=== PATIENT | female | born 1940 | race Caucasian/White ===

== ENCOUNTER 2020-10-11 08:30 | Inpatient (IN) | payer OTHER, MEDICARE, BC, SELFPAY ==
[2020-10-11 10:48] LABS: Source Nasal/Nares
[2020-10-11 13:30] LABS: COVID-19 PCR Negative (Negative)
[2020-10-11] MEDS: Nystatin POWDER 60 GM JAR TP ×2 (14:58→20:30)
[2020-10-11] MEDS: metroNIDAZOLE 500 MG TAB UD ×2 (14:58→20:25)
--- NOTE | 2020-10-11 21:02 | HPE_ITS ---
Date of service: 10/11/20 Time of Service: 10:02 Assessment and Plan Assessment and plan (1) Hospice care patient: Status: Acute Assessment and plan: Margarita is being admitted for symptom management. She will need daily visits while on this status. She is to be seen by Dr De La Torre tomorrow. Dr De La Torre and I have discussed her case. She is aware of Margarita's desire to use Act 39 if/when Margarita returns home. We also discussed Margarita choosing to voluntarily stop eating and drinking. I did not bring this up with Margarita; Dr De La Torre will do so 10/12 at her visit with Margarita. Margarita has met with product examiner Tri Gillespie. She would like to meet with hospital precinct commanding officer Taya Good, too. I discussed Margarita's needs with Taya. (2) Left leg swelling: Status: Acute Assessment and plan: Very suspicious for DVT or for LAD of left groin. I think the former is more likely but certainly LAD could be playing a role, too. She is worried that the pain in her calf is now starting on her right side. We cannot treat her for presumed DVT due to her open cancerous wound. I am afraid we would cause inadvertent bleeding of her cancer. (3) History of pelvic surgery: Status: Chronic (4) Uncontrolled pain: Status: Acute Assessment and plan: Margarita had been prescribed oxycodone by the oncology team at [facility]. She has not used them regularly, as they make her feel dizzy and she had been living alone until this past week. She is in pain with any movement. She agreed to a SC morphine pump. I started it at 1 mg/hr with 1 mg bolus q 15 minutes, as she doesn't take much narcotic medication at this time. We will work to get her comfortable as soon as possible. She is very stoic, and she has been very afraid of developing dizziness as a potential side effect of narcotics as she wants to avoid falling. (5) Wound discharge: Status: Chronic Assessment and plan: Was quite odiferous at home. Ordered metronidazole for odor control. Not as strong a smell as she had at home, but she noted that she was able to shower this am, prior to transfer to [facility]. (6) Urinary and bowel incontinence: Status: Acute Assessment and plan: Her PROTECTION ENGINEER anatomy is hard to discern. SHe says she frequently passes gas through her cancerous wound. Sometimes the discharge from the wound looks like feces. Unclear if she has a fistula, highly suspect so. (7) Generalized weakness: Status: Acute Assessment and plan: Hard for her move at all, due to combination of pain and weakness. I was surprised to learn from her primary nurse that she could walk 10 with a walker and stand-by assistance only. Will continue to monitor. Given her leg swelling and constant pain, I suspect she will be bedbound soon. (8) Unintentional weight loss: Status: Acute Assessment and plan: Due to her cancer. Currently on regular diet. Dr De La Torre may choose to discuss the option of voluntary stopping of eating and drinking with Margarita when she sees her tomorrow. History of Present Illness History of Present Illness Chief Complaint: hospice symptom management, vulvar cancer Narrative: Margarita is a 80 yo woman originally diagnosed with vulvar cancer in 2011. She had extensive surgery at [facility] then and 2 years later had a revisional surgery at [facility]. She thought after that surgery, she'd been cured of her cancer. She was without symptoms until about Jun 2019, at the start of the COVID-19 pandemic. She is non-specific about her symptoms, but it sounds as if she has a new lesion in her vulvar area. Her growth and discharge worsened until she couldn't bear it. She did not seek care for this recurrence until Jul 14, when she went to [facility]. From there, she was transferred to [facility]. She tells me that the [facility] provider cotton agent told her to go home, put her things in order, and enroll in hospice. She did not contact hospice in June, but instead continued to live on her own (her from dementia about 5 years ago) in [facility] until last week. Due to her progressive weakness, she was forced to give her dog to a friend. She could no longer care for her dog. She was so bereft, she called her sister, Jayleen, who lives in [place] and is the caregiver for their other sister Sa hays, with end-stage COPD. Jayleen came up to comfort Margarita over the loss of her canine boat hoist operator, but found her in much worse shape than she had admitted to. Margarita then contacted hospice and asked to be admitted immediately. If she could not be admitted that day, she was going to take all my pain pills instead. We were able to get her enrolled in hospice on the evening Monday, October 06. I saw her the following day, because she was interested in hearing about Act 39, Medical Aid in Dying. She wanted to begin the process. She made her first formal request. She then said she didn't think she could tolerate making it through the minimal 21 days or so of the Act 39 process. Her pain was uncontrolled. She could not do her own personal care. She wanted to . She denied any depression. She is not demented. She said the [facility] team told her she would in the next 2-3 months. She did not expect to be still alive at this time. I told her we could admit her to the hospital, get her pain under control, and she could meet with Dr De La Torre as the consulting physician. She said if she could in the hospital, she would be happy. She does not want to go home again. Review of Systems Constitutional Constitutional: Reports difficulty sleeping, Reports fatigue, Reports lethargy, Reports poor appetite, Reports weakness and Reports weight loss Eyes Eyes: Reports dry eyes and Reports requires corrective lenses ENT Ears, Nose, Mouth, and Throat: Reports dizziness, Reports dry mouth and Reports disequilibrium Cardiovascular Cardiovascular: Reports pedal edema, Reports claudication, Reports leg edema, Reports dyspnea and Reports dyspnea on exertion Respiratory Respiratory: Reports dyspnea and Reports dyspnea on exertion Gastrointestinal Gastrointestinal: Reports abdominal pain, Reports constipation, Reports excessive flatus and Reports fecal incontinence Genitourinary Genitourinary: Reports urinary frequency, Reports difficulty voiding, Reports genital lesions, Reports dysuria, Reports pelvic pain, Reports prolapse symptoms, Reports urinary incontinence and Reports vaginal odor Musculoskeletal Musculoskeletal: Reports abnormal gait, Reports atrophy and Reports muscle weakness Integumentary/Breasts Skin/Breast: Reports bleeding lesions, Reports changing lesions, Reports dry skin, Reports lesions, Reports non-healing lesions, Reports skin pain and Reports wounds Neurologic Neurologic: Reports abnormal gait, Reports behavioral changes, Reports dizziness, Reports disequilibrium and Reports weakness Psychiatric Psychiatric: Reports abnormal sleep pattern, Reports behavioral changes, Reports difficulty concentrating, Reports hopelessness, Reports anhedonia and Reports mood swings Endocrine Endocrine: Reports fatigue [facility] Medical History (Updated 10/11/20 @ 21:19 by Mckayla Mario MD) Colovesical fistula DNI (do not intubate) DNR (do not resuscitate) Generalized weakness Goals of care, counseling/discussion Hospice care patient Left leg DVT Left leg swelling Uncontrolled pain Unintentional weight loss Urinary and bowel incontinence Vesical fistula, not elsewhere classified Wound discharge from her vulvar cancer Surgical History (Updated 10/09/20 @ 16:32 by Mckayla Mario MD) H/O of hysterectomy with bilateral oophorectomy History of pelvic surgery x 2; extensive vulvar reconstruction after initial cancer removal Family History (Updated 10/09/20 @ 16:33 by Mckayla Mario MD) Sister COPD (chronic obstructive pulmonary disease) Sister End stage COPD Social History (Updated 10/11/20 @ 21:22 by Mckayla Mario MD) Smoking/Tobacco Use Status: Never Smoking risk assessment performed?: Yes Alcohol Intake: current Alcohol Intake frequency: holidays/special occasions only Alcohol type: other Drug use: Never Caregiver/Support person: No Household members: none and other Details: sister from [place] staying there temporarily Housing: house number of grandchildren: 0 Communication Needs: Corrective Lenses Education Level: college Do you need help understanding health information?: Always current occupation: retired Pets and animals: Yes (gave her dog to good friend September 2020; could not care for her due to her ill) Pets and animals: dog(s) Sexually active: No Current gender identity: female What is your relationship status?: How often do you talk on the phone with friends or family?: three or more times per week How often do you get together with friends or relatives?: three or more times per week Panel score (0-1 are the most socially isolated patients): 1 What type of physical activity do you participate in: none and bed-bound Frequency: does not exercise Special roxane needs: No Agree to transfusion: No Seatbelt use: always Working smoke detector in home: Yes Fire extinguisher in home: Yes Do you feel safe at home: No (unsafe ambulation) Do you feel safe in your relationship?: Yes Additional Social history: Margarita is a . She has no children. Her of dementia about 5-6 years ago. Her dog was her family. She had to give her dog away mid-September due to her inability to care for the dog. Her sister came up from [place] to comfort her and found her sicker than she'd let on. She asked to be enrolled in hospice STAT. This was done. She needs more attention to get her comfortable. She wants to use Act 39 MINDY. She now understands it is not immediate. She made her first formal request on 10/07. She will see Dr De La Torre in consultation. I will see her as soon as my schedule allows after 15 days of passed from her first request. Meds Allergies and Home Medications Allergies Allergy/AdvReac Type Severity Reaction Status Date / Time No Known Allergies Allergy Verified 09/28/20 09:34 Home Medications Medication Instructions Recorded Confirmed Type acetaminophen 325 mg tablet 325 mg PO Q4H PRN PRN tab 09/28/20 10/11/20 History cyanocobalamin (vitamin B-12) 250 500 PO DAILY 09/28/20 10/10/20 History mcg tablet docusate sodium 100 mg capsule 100 mg PO DAILY 09/28/20 10/11/20 History oxycodone 5 mg tablet 5 mg PO Q4H PRN PRN 09/28/20 10/11/20 History levothyroxine 112 mcg PO DAILY AM 10/11/20 10/11/20 History Exam Const General: cooperative, no acute distress and ill appearing Nutritional Appearance: overweight Orientation: alert, awake and oriented x3 [facility] Head: normocephalic and atraumatic Ears: hearing grossly normal bilaterally General nose exam: external nose normal Face and sinus: normal facial exam, face symmetric and dry mucous membranes Eyes Conjunctivae: conjunctivae normal Sclera: sclerae normal Neck Neck: no lymphadenopathy Resp Effort & Inspection: normal respiratory effort and able to speak in complete sentences Auscultation: clear to auscultation bilaterally Cardio Jugular venous pressure: no JVD Rate: regular rate Rhythm: regular rhythm Heart Sounds: S1 normal and S2 normal GI Palpation: soft Auscultation: normal bowel sounds External Female Exam: abnormal external appearance, gaping introitus, externally tender, external swelling, lesion and other (normal 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 landmarks are destroyed by cancer) Skin General skin exam: pallor Lesions: lesion noted Wounds: wounds noted Hair: normal Neuro General: patient alert, patient awake, patient oriented x3, not confused and unable to assess gait (nurse reported that she could walk with walker to toilet, about 10 ft) Cognition: normal cognition Speech: speech normal Gait: shuffling and gait assisted Method: walker Extrem General: calf tenderness (left worse than right, +Homans sign) bilaterally, edema (left leg, from groin to ankle) and pedal edema Psych Appearance: grossly normal Mental Status: mental status grossly normal Speech and Movement: speech clear and slowed movement Mood: dysthymic mood Affect: sad Attitude: cooperative Thought Process: perseverating (wants to , hates being alive in current state) Insight: fair Judgment: fair Other: This was my second visit with Margarita. Trying to get a good sense of who she is. Want to explore her reasons for wanting to , once we get her pain under better control. Results Labs Labs: Laboratory Results - last 24 hr 10/11/20 10:35 COVID-19 Source Nasal/nares SARS-CoV-2 (PCR) Negative COVID-19 Screening Have you, or household traveled for leisure in last 14 days?: No Had IN PERSON contact w/suspected or confirmed C-19 person: No
--- NOTE | 2020-10-12 08:33 | W.PM.PROGNOT ---
Date of Service Date of service: 10/12/20 Time of Service: 08:33 Assessment and Plan Assessment and plan (1) Unintentional weight loss: Status: Acute (2) Uncontrolled pain: Status: Acute (3) Vulva cancer: Status: Acute (4) Urinary and bowel incontinence: Status: Acute Assessment and plan: Due to Margarita's anatomy I think putting in a urinary catheter through the urethra is almost impossible. I could not see evidence of a urethra being present at this time. I would like to have a urology consult just to determine if there are options. Obviously be easiest options are the best. What would a suprapubic catheter in entail.? We are not looking to act any options immediately but would like to know what the options are Regarding pain: well controlled at this time on morphine pump Left leg swelling probably DVT. No action She is considering VCED later this week after her family returns. She feels that it is important to say goodbye to her sisters when she is lucid. We also discussed act 39. She has clearly requested medication to help her . She is of clear mind and has the capacity to make this decision. I will complete the consult form for Act 39. We discussed other options for remaining in control of her dying process I have discussed Margarita's thoughts and choices with Dr Mario Subjective Subjective Patient reports: feels better, pain is less and tolerating liquids well Interval history since last seen: Margarita feels like she is doing better today. The pain medication has helped considerably. She is awaiting her visit from her sisters which will be Monday or Monday. With her overnight nurse, Lelo, and her daytime nurse we discussed her options. We discussed act 39 and the logistics of it. We discussed voluntary cessation of eating and drinking. And we also discussed treating her pain with titrating the doses as needed. We also discussed a catheter. She is willing to meet with urology. Exam Const General: cooperative, comfortable and well developed Nutritional Appearance: thin Orientation: oriented x3 Eyes General: appearance normal, both eyes and all related structures Resp Effort & Inspection: normal respiratory effort and able to speak in complete sentences Auscultation: clear to auscultation bilaterally and no crackles External Female Exam: other (large open wound from cancer approx 2 in by 3 in ) Extrem Other: Left leg very swollen, about twice the size of right. Presumed DVT. Psych Speech and Movement: speech clear and slowed movement Mood: congruent mood Attitude: cooperative Thought Process: normal Objective Laboratory Results - last 24 hr 10/11/20 10:35 COVID-19 Source Nasal/nares SARS-CoV-2 (PCR) Negative
--- NOTE | 2020-10-12 09:01 | CMPROGNOTE_ITS ---
Care Management Progress Note Margarita was admitted by Hospice for symptom management. Dr. De La Torre ordered a Urology consult to explore options for urinary incontinence. Appears from chart review that Margarita would prefer to pass away at the Hospital, CM will await further advisement from Hospice for disposition coordination. Per MD: We also discussed Margarita choosing to voluntarily stop eating and drinking. She agreed to a SC morphine pump. I started it at 1 mg/hr with 1 mg bolus q 15 minutes, as she doesn't take much narcotic medication at this time. Margarita's desire to use Act 39 if/when Margarita returns home. We will work to get her comfortable as soon as possible. She is very stoic, and she has been very afraid of developing dizziness as a potential side effect of narcotics as she wants to avoid falling. Margarita has met with hospice community liaison Tri Gillespie. She would like to meet with [facility] pure culture operator Taya Good, too. CM continues to follow. From H&P: Margarita is a 80 yo woman originally diagnosed with vulvar cancer in 2011. She had extensive surgery at [facility] then and 2 years later had a revisional surgery at [facility]. She thought after that surgery, she'd been cured of her cancer. She was without symptoms until about Jun 2019, at the start of the COVID-19 pandemic. She is non-specific about her symptoms, but it sounds as if she has a new lesion in her vulvar area. Her growth and discharge worsened until she couldn't bear it. She did not seek care for this recurrence until Jul 14, when she went to [facility]. From there, she was transferred to [facility]. She tells me that the CARDIAC SONOGRAPHER-ONC provider division superintendent told her to go home, put her things in order, and enroll in hospice. She did not contact hospice in June, but instead continued to live on her own (her from dementia about 5 years ago) in [facility] until last week. Due to her progressive weakness, she was forced to give her dog to a iend. She could no longer care for her dog. She was so bereft, she called her sister, Jayleen, who lives in [place] and is the caregiver for their other sister Yael, with end-stage COPD. Jayleen came up to comfort Margarita over the loss of her canine oil scout, but found her in much worse shape than she had admitted to. Margarita then contacted hospice and asked to be admitted immediately. If she could not be admitted that day, she was going to take all my pain pills instead. We were able to get her enrolled in hospice on the evening Monday, October 06. I saw her the following day, because she was interested in hearing about Act 39, Medical Aid in Dying. She wanted to begin the process. She made her first formal request. She then said she didn't think she could tolerate making it through the minimal 21 days or so of the Act 39 process. Her pain was uncontrolled. She could not do her own personal care. She wanted to . She denied any depression. She is not demented. She said the CARDIAC SONOGRAPHER-ONC team told her she would in the next 2-3 months. She did not expect to be still alive at this time. I told her we could admit her to the hospital, get her pain under control, and she could meet with Dr De La Torre as the consulting physician. She said if she could in the hospital, she would be happy. She does not want to go home again.
[2020-10-12] MEDS: metroNIDAZOLE 500 MG TAB UD ×3 (09:23→20:29)
[2020-10-12] MEDS: Nystatin POWDER 60 GM JAR TP ×3 (09:23→20:28)
--- NOTE | 2020-10-12 11:58 | PHA.REVIEW ---
Pharmacy Admission Review - Admission Clinical Review (Last Updated 10/11/20 @ 21:19 by Mckayla Mario MD) Unintentional weight loss (Acute) Generalized weakness (Acute) Left leg swelling (Acute) Uncontrolled pain (Acute) Hospice care patient (Acute) Urinary and bowel incontinence (Acute) Vulva cancer (Acute) No Known Allergies Allergy (Verified 09/28/20 09:34) - Renal Dosing Medications needing adjustments: N/A - Anticoagulation DVT Prohphylaxis: N/A Therapeutic Anticoagulation: N/A - Opiate Usage Evaluate Pain Scale/Pains Meds: Reviewed Scheduled Bowel Reg ordered if on Opiates?: Yes (GEORGE and PRN meds) - Relevant Labs Electrolytes, C-Reactive P, ESR: N/A - DM Control Insulin Dosing: N/A - Heart Failure/ME EF%, JESÚS's, B-Blockers, Diuretics: N/A - BP Control If elevated: N/A - Qtc Review If Elevated: N/A - IV to PO Switch IV Medications: Reviewed - Home Meds Home Med List reviewed: Reviewed (Some meds on external med history not on pt's home med list, but most of those were written by Dr. Mario who admitted the patient and are similar to the ones on the palliative orderset that were ordered.) Relevent Home Meds Not ordered & why?: Cyanocobalamin, levothyroxine, oxycodone (has morphine CADD) - Current meds Current Medication Order Review: Reviewed - Comments Comments/Follow Ups: Watch for dose adjustments with the CADD and for med changes (additional need of BM meds).
--- NOTE | 2020-10-12 13:51 | CHAPLAIN ---
I had a long visit with Margarita this morning. She was resting in bed, but open to conversation. She shared some personal history telling me about growing up in [place] and making her way to [place], after living in other states, as her 's work as an senior internal auditor led them to different places and then to [place]. Margarita is very close to her two sisters who are in [place]. They are close in age and are the three musketeers Margarita said. One sister had been visiting with Margarita but returned to [place] to care for the other sister who has COPD. The two of them will be coming to [place] on 10/14. Margarita had to rehome her harris-doodle, Kristel, recently and her sister came to support her at that time. Margarita is a and does not have any children, according to Dr. Mario's notes. Margarita is a hospice patient, dealing with cancer of the vulva and said she would prefer to be here rather than home. She thought that might sound strange, but said she doesn't want a lot of people in and out of her house. I assured her that this wasn't strange as many people are hesitant to have lots of hospice staff in their homes. Margarita was raised in a [employer], but does not attend episcopal now and considers her time in nature as a time spent close to God. She also said she has a friendly relationship with Luca, and has since she was a young girls. We did not talk about Margarita's diagnosis and prognosis, but I will continue to visit and it's likely we'll get to those topics. She said she is comfortable. She met with Dr. De La Torre this morning and will likely see Dr. Mario tomorrow.
[2020-10-12 20:36] VITALS: BP 138/64; PULSE 81; RESP 18; TEMP 37; O2SAT 94
[2020-10-13] MEDS: diphenhydrAMINE 25 MG CAP PO (00:54)
[2020-10-13 07:09] VITALS: BP 130/70; PULSE 86; RESP 16; TEMP 37.5; O2SAT 95
--- NOTE | 2020-10-13 07:10 | W.UROLOGYCON ---
Date of service: 10/13/20 Time of Service: 08:52 Assessment and Plan Assessment and plan (1) Urinary and bowel incontinence: Status: Acute Assessment and plan: With her large bulky pelvic mass, she is at risk of developing urinary retention. In fact, she had a near retention episode this morning. Placing a urethral catheter is not expected given her current anatomy. I think a suprapubic tube is quite reasonable. At our facility, it would require a cutdown to locate the bladder and inserted her SP tube. This would need to be done in the operating room with some local anesthetic and some sedation. The other option would be for a down and back transfer to a facility that has interventional radiology services so that it tube could be put in percutaneously. The patient is absolutely not interested in any type of transfer. She is, however, agreeable to a cut down procedure here in our operating room. We will make the patient n.p.o. and contact the operating room and our anesthesia providers to get this patient on the schedule for this afternoon. History of Present Illness History of Present Illness Chief Complaint: Urinary incontinence Narrative: This is a 80-year-old woman who has a history of vulvar cancer. She was initially treated with a localized resection. When she had a recurrence she was treated with radiation therapy and radical vulvectomy. The initial surgery was done in [facility]. The subsequent radiation and radical surgery was done at [facility] in [place], [place]. She is currently hospitalized with a pelvic mass and open wounds. I have been asked to see her to discuss possible bladder drainage options. She tells me that after her surgery back in 2013, she had a urethral catheter for about 2 weeks. She was continent after the urinary catheter was removed. She did not require intermittent catheterization. She is not aware of any specific urinary diversion procedure, but she mentions that she did have reconstruction. Currently, she has a bulky mass in the vagina. Earlier this morning, she felt the need to void, but was unable to urinate. She was bladder scanned for 700 cc. Afterwards, she was incontinent of urine. The urine has been irritating to her pelvic/vaginal mass. I was able to review some of her records from [facility]. The operative note from the radical vulvectomy done at [facility] is not available, so I am not sure of the technical details involved with the reconstruction portion of her surgery. [place] [facility] [place] that the urethra was moved further back into the vagina during the procedure. [place] pelvic exam [place] [facility] indicates that the urethral meatus is not visible and that the vaginal area is replaced with bulky tumor that extends to the rectum. Review of Systems Cardiovascular Cardiovascular: Denies chest pain, Denies irregular heart rhythm and Denies dyspnea Respiratory Respiratory: Denies cough, Denies hemoptysis, Denies excessive phlegm production and Denies dyspnea Gastrointestinal Gastrointestinal: Denies nausea and Denies vomiting Neurologic Neurologic: Denies confusion Psychiatric Psychiatric: Denies confusion Hematologic/Lymphatic Comments: Left lower extremity edema likely related to a DVT ON LICENSE OF [facility] Medical History (Updated 10/11/20 @ 21:19 by Mckayla Mario MD) Colovesical fistula DNI (do not intubate) DNR (do not resuscitate) Generalized weakness Goals of care, counseling/discussion Hospice care patient Left leg DVT Left leg swelling Uncontrolled pain Unintentional weight loss Urinary and bowel incontinence Vesical fistula, not elsewhere classified Wound discharge from her vulvar cancer Surgical History (Updated 10/09/20 @ 16:32 by Mckayla Mario MD) H/O of hysterectomy with bilateral oophorectomy History of pelvic surgery x 2; extensive vulvar reconstruction after initial cancer removal Family History (Updated 10/09/20 @ 16:33 by Mckayla Mario MD) Sister COPD (chronic obstructive pulmonary disease) Sister End stage COPD Social History (Updated 10/11/20 @ 21:22 by Mckayla Mario MD) Smoking/Tobacco Use Status: Never Smoking risk assessment performed?: Yes Alcohol Intake: current Alcohol Intake frequency: holidays/special occasions only Alcohol type: other Drug use: Never Caregiver/Support person: No Household members: none and other Details: sister from [place] staying there temporarily Housing: house number of grandchildren: 0 Communication Needs: Corrective Lenses Education Level: college Do you need help understanding health information?: Always current occupation: retired Pets and animals: Yes (gave her dog to good friend September 2020; could not care for her due to her ill) Pets and animals: dog(s) Sexually active: No Current gender identity: female What is your relationship status?: How often do you talk on the phone with friends or family?: three or more times per week How often do you get together with friends or relatives?: three or more times per week Panel score (0-1 are the most socially isolated patients): 1 What type of physical activity do you participate in: none and bed-bound Frequency: does not exercise Special roxane needs: No Agree to transfusion: No Seatbelt use: always Working smoke detector in home: Yes Fire extinguisher in home: Yes Do you feel safe at home: No (unsafe ambulation) Do you feel safe in your relationship?: Yes Additional Social history: Margarita is a . She has no children. Her of dementia about 5-6 years ago. Her dog was her family. She had to give her dog away mid-September due to her inability to care for the dog. Her sister came up from [place] to comfort her and found her sicker than she'd let on. She asked to be enrolled in hospice STAT. This was done. She needs more attention to get her comfortable. She wants to use [address] [place]. She now understands it is not immediate. She made her first formal request on 10/07. She will see Dr De La Torre in consultation. I will see her as soon as my schedule allows after 15 days of passed from her first request. Exam Narrative Exam Narrative: She is a very poor does not woman in no current distress. She is cooperative. Her vital signs are documented elsewhere She has an umbilical hernia that is reducible. She has a healed Pfannenstiel incision. She has no additional lower abdominal scarring. She is awake and alert. She is quite clear and direct in her wishes. Results Last Vital Signs Temp 37.0 C 10/12/20 20:36 Pulse 81 10/12/20 20:36 Resp 18 10/12/20 20:36 BP 138/64 10/12/20 20:36 Pulse Ox 94 10/12/20 20:36
[2020-10-13] MEDS: Docusate Sodium 100 MG CAP PO (08:51)
[2020-10-13] MEDS: Nystatin POWDER 60 GM JAR TP ×3 (08:51→21:08)
[2020-10-13] MEDS: metroNIDAZOLE 500 MG TAB UD ×3 (08:52→20:45)
[2020-10-13 08:54] VITALS: BP 130/70; PULSE 86; RESP 16; TEMP 37.5; O2SAT 95
--- NOTE | 2020-10-13 09:01 | W.NUTRFU ---
Date of service: 10/13/20 Time of Service: 09:01 Nutritional Follow up NOTE: 80 year old female with hx of unintentional weight loss with hx of vulvar cancer treatment. Hospice care patient. Following regular meal plan with adequate intake to meet nutrient and fluid needs. BMI indicates obesity. Will continue to follow. Time Spent in Nutritional Counseling and Treatment: 0
--- NOTE | 2020-10-13 12:31 | CMPROGNOTE_ITS ---
Care Management Progress Note Margarita met with Dr. Nieves for a Urology Consult this morning, per their conversation Margarita was agreeable to going to the OR and having a suprapubic tube placed for bladder. Margarita will be brought to the OR this afternoon. She was visiting with Glove Operator Tri Gillespie, and Dr. Mario when CM observed her.
--- NOTE | 2020-10-13 14:54 | W.PM.PROGNOT ---
Date of Service Date of service: 10/13/20 Time of Service: 11:54 Assessment and Plan Assessment and plan (1) Generalized weakness: Status: Chronic Assessment and plan: Margarita reports she has been bedbound for more than 24 hrs. She says she feels too weak to get out of bed. Nurses are caring for her personal care needs. (2) Left leg DVT: Status: Suspected Assessment and plan: Not treating with anticoagulants due to her risk of bleeding from her open wound. (3) History of pelvic surgery: Status: Chronic (4) Uncontrolled pain: Status: Chronic Assessment and plan: She appeared much more comfortable today but still reported her pain at a 3. I discussed increasing her basal dose to 2 mg/hr, but she wants to wait until her sisters visit. Her primary nurse says that sometimes after Margarita received a bolus, she gets very sleepy. Margarita does not want to be sleepy when her sisters are with her. (5) Hospice care patient: Status: Chronic Assessment and plan: Remains on SYMPTOM MANAGEMENT. (6) Wound discharge: Status: Chronic Assessment and plan: Odor is better controlled with addition of metronidazole to her care. (7) Urinary and bowel incontinence: Status: Acute Assessment and plan: Dr Nieves noted fistuale, and expects they will get worse as her cancer progresses. (8) Constipation: Status: Acute Assessment and plan: May be exacerbated by her opioids. We need to be aggressive in her bowel regimen. More laxatives ordered. Subjective Subjective Patient reports: still having pain (gets boluses before she is moved), pain is less, flatus and other (bedbound now, too weak to stand) Interval history since last seen: Margarita reports her pain is down to a 3 at rest, from a 7 or 8. She remains on low dose morphine pump at 1 mg/hr. She does not want to go up on her pain medication until she sees her sisters, who are due to [place] from [place] tomorrow. She met with Tri Gillespie, the hospice case manager, at length today. I saw her twice, once with Tri and once on her own. She is thinking that she wants to start doing Voluntary Cessation of Eating and Drinking as of . I explained that this would be a 1-2 week process. We discussed her going to a community long-term to put this in place. She would like to stay at [facility]. She loves the nursing care she is receiving. Margarita was evaluated this am by Dr Nieves who was going to put in a suprapubic catheter later today. However, her primary nurse, Indy, says that the majority of discharge from her kevon-area appears to be cancerous fluids from her oepn wound. She does not think that Margarita's quality of life would be much affected by having a urinary catheter in place. She says she and the other nurses would have to change her just as frequently. Dr Nieves reassured me, and I reassured Margarita, that the chance of her intestines prolapsing through her wound is quite low. He does describe her open wound as functioning much like a cloaca. He acknowledges that she would still have quite a bit of fluid coming from her open wound even with a SP catheter in place. Given this, we cancelled the procedure that was scheduled for later today. Exam Const General: cooperative, no acute distress and ill appearing Nutritional Appearance: overweight Orientation: alert, awake and oriented x3 [facility] Head: normocephalic and atraumatic Ears: hearing grossly normal bilaterally General nose exam: external nose normal Face and sinus: normal facial exam, face symmetric and dry mucous membranes Eyes Conjunctivae: conjunctivae normal Sclera: sclerae normal Neck Neck: no lymphadenopathy Resp Effort & Inspection: normal respiratory effort and able to speak in complete sentences Auscultation: clear to auscultation bilaterally Cardio Jugular venous pressure: no JVD Rate: regular rate Rhythm: regular rhythm Heart Sounds: S1 normal and S2 normal GI Palpation: soft Auscultation: normal bowel sounds External Female Exam: abnormal external appearance, gaping introitus, externally tender, external swelling, lesion and other (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) Skin General skin exam: pallor Lesions: lesion noted Wounds: wounds noted Hair: normal Neuro General: patient alert, patient awake, patient oriented x3 and not confused Cognition: normal cognition Speech: speech normal Gait: gait assisted Method: walker Extrem General: calf tenderness (left worse than right, +Homans sign) bilaterally, edema (left leg, from groin to ankle) and pedal edema Psych Appearance: grossly normal Mental Status: mental status grossly normal Speech and Movement: speech clear and slowed movement Affect: sad Attitude: cooperative Thought Process: perseverating (wants to , hates being alive in current state) Insight: fair Judgment: fair Other: This was my third visit with Margarita. Trying to get a good sense of who she is. She is leaning toward voluntary stopping of eating and drinking. Appears to be of sound mind. Calls herself stubborn. Objective Last Vital Signs Temp 99.5 F 10/13/20 08:54 Pulse 86 10/13/20 08:54 Resp 16 10/13/20 08:54 BP 130/70 10/13/20 08:54 Pulse Ox 95 10/13/20 08:54
--- NOTE | 2020-10-13 15:03 | CHAPLAIN ---
I have not seen Margarita today. According to Care Management notes Margarita will be going to the OR this afternoon to have laguna catheter put in. Rev. Tri Gillespie, [facility] Staff Nurse, visited with Margarita this morning.
[2020-10-13] MEDS: Bisacodyl 5 MG TABEC PO (18:01)
[2020-10-14 07:19] VITALS: BP 104/65; PULSE 79; RESP 15; TEMP 37; O2SAT 91
[2020-10-14] MEDS: metroNIDAZOLE 500 MG TAB UD ×3 (08:52→20:45)
[2020-10-14] MEDS: Docusate Sodium 100 MG CAP PO (08:53)
[2020-10-14] MEDS: Nystatin POWDER 60 GM JAR TP ×3 (08:53→20:45)
--- NOTE | 2020-10-14 10:57 | CHAPLAIN ---
Margarita was resting in bed when I visited. We talked about her conversation with Dr. Mario about voluntarily stopping eating and drinking, and how Margarita feels about that plan. 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 Her mom was the seventh daughter of the seventh daughter and Margarita talked about special gifts that her mom had. Margarita's two sisters are arriving from [place] today and will stay for a few days. One sister is the caregiver for the other, who has COPD. Margarita has one other friend who lives locally with whom she'd like to visit, but that person isn't fully vaccinated yet. Margarita hopes she will be able to see her eventually.
--- NOTE | 2020-10-14 12:09 | W.PM.PROGNOT ---
Date of Service Date of service: 10/14/20 Time of Service: 11:09 Assessment and Plan Assessment and plan (1) Constipation: Status: Acute Assessment and plan: Bowel sounds wnl. No mass, no tenderness. May be leaking more stool from her wound than she realized. Nurses think that little of the discharge is stool; most of it is cancerous material/sloughing. (2) Generalized weakness: Status: Chronic Assessment and plan: Bedbound now. Weak and with likely left DVT. Using bedpan without complaint. (3) Uncontrolled pain: Status: Chronic Assessment and plan: On morphine SC pump. She is not fully pain controlled but she wants to remain as clear as possible to talk to her sisters today and tomorrow. (4) Hospice care patient: Status: Chronic Assessment and plan: Remains on symptom mangament. Added multiple bowel meds today. (5) Wound discharge: Status: Chronic Assessment and plan: Still requiring pericare every 2-3 hrs. Using flagyl for wound control. (6) Urinary and bowel incontinence: Status: Acute Assessment and plan: No control over either. Has fistulas. Her wound is acting like at [facility]. Thanks to Dr Nieves for being willing to put in SP if patient thought this would improve her QOL. (7) Vulva cancer: Status: Acute Assessment and plan: This will be the cause of her . Progressive. Subjective Subjective Patient reports: still having pain and no bowel movement Interval history since last seen: I met with Margarita in her room. Her sisters are supposed to visit her this afternoon. She thinks they will be in town for about 48 hrs. She is planning to start limiting her food/drink tomorrow. She is still having 3/10 pain. She does not want me to increase her pain medication yet. She wants to be as clear as possible to see her sisters. She has not had a bowel movement since Monday, October 10. Some of her discharge from her wound looks as if it could be fecal. She does have bowel sounds. She is willing to try any bowel meds we have, including relistor. She would prefer to avoid an enema if possible. She feels her father will come get her when she dies. She is not afraid of dying. She feels very happy to be at [facility]. She says she didn't realize how hard it was for her to care for herself at home. She remains on hospice symptom management. We discussed the decision not to proceed with the SP catheter placement. She said she understands that she would still have to be changed/moved just as often, due to her vulvar wound discharge. She is ok with not having a catheter placed. Exam Const General: cooperative, no acute distress and ill appearing Nutritional Appearance: overweight Orientation: alert, awake and oriented x3 [facility] Head: normocephalic and atraumatic Ears: hearing grossly normal bilaterally General nose exam: external nose normal Face and sinus: normal facial exam, face symmetric and dry mucous membranes Eyes Conjunctivae: conjunctivae normal Sclera: sclerae normal Neck Neck: no lymphadenopathy Resp Effort & Inspection: normal respiratory effort and able to speak in complete sentences Auscultation: clear to auscultation bilaterally Cardio Jugular venous pressure: no JVD Rate: regular rate Rhythm: regular rhythm Heart Sounds: S1 normal and S2 normal GI Inspection: obesity Palpation: soft, not firm, no guarding, no masses and nontender Auscultation: normal bowel sounds External Female Exam: abnormal external appearance, gaping introitus, externally tender, external swelling, lesion and other (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) Skin General skin exam: pallor Lesions: lesion noted Wounds: wounds noted Hair: normal Neuro General: patient alert, patient awake, patient oriented x3 and not confused Cognition: normal cognition Speech: speech normal Extrem General: calf tenderness (left worse than right, +Homans sign) bilaterally, edema (left leg, from groin to ankle) and pedal edema Psych Appearance: grossly normal Mental Status: mental status grossly normal Speech and Movement: speech clear and slowed movement Mood: congruent mood Affect: normal affect and sad Attitude: cooperative Thought Process: normal Insight: fair Judgment: fair Other: This was my fourth visit with Margarita. Trying to get a good sense of who she is. She is leaning toward voluntary stopping of eating and drinking. Appears to be of sound mind. Calls herself stubborn. If she does get discharged, wants to use Act 39. Explained she could not use it in the hospital or SNF. Objective Last Vital Signs Temp 98.6 F 10/14/20 07:19 Pulse 79 10/14/20 07:19 Resp 15 10/14/20 07:19 BP 104/65 10/14/20 07:19 Pulse Ox 91 L 10/14/20 07:19
--- NOTE | 2020-10-14 13:10 | PDOC.CMPRO ---
Care Management Progress Note Margarita's sisters will be coming to visit her, she has asked to not have her pain meds increased until after their visit. Per Dr. Mario, she has discussed intentions to stop eating and drinking tomorrow. Catheter placement was cancelled. Reportedly Margarita is now bedbound and too weak to get out of bed, she remains on Symptom management through Hospice and on a morphine drip. No updates on disposition at this time. CM continues to follow.
[2020-10-14] MEDS: Senna TAB 1 TAB PO ×2 (13:37→20:45)
[2020-10-14] MEDS: Methylnaltrexone 12 MG/0.6 ML VIAL SC (13:37)
[2020-10-15] MEDS: Docusate Sodium 100 MG CAP PO (08:51)
[2020-10-15] MEDS: metroNIDAZOLE 500 MG TAB UD ×3 (08:52→20:40)
[2020-10-15] MEDS: Senna TAB 1 TAB PO (09:00)
[2020-10-15] MEDS: Nystatin POWDER 60 GM JAR TP ×3 (09:02→20:40)
--- NOTE | 2020-10-15 13:20 | W.PM.PROGNOT ---
Date of Service Date of service: 10/15/20 Time of Service: 13:20 Assessment and Plan Assessment and plan (1) Constipation: Status: Acute Assessment and plan: No obvious formed bowel movement despite multiple bowel meds. Asymptomatic with her constipation. No nausea. No pain. Will continue to give meds but not to worry, no enema, unless symptomatic. (2) Generalized weakness: Status: Chronic Assessment and plan: bedbound too weak to stand appreciates being in hospital as she could not function at home (3) Left leg DVT: Status: Suspected Assessment and plan: still swollen calf still painful if palpated explained she is at risk for PE due to her clot she's hoping for a quick exit (4) Uncontrolled pain: Status: Chronic Assessment and plan: Increased her basal rate to 2 mg. CHanging pump so she can self-administer. She will likely need daily adjustments to her pump medications. (5) Hospice care patient: Status: Chronic Assessment and plan: Remains on symptom management. (6) Vulva cancer: Status: Acute Assessment and plan: This will be the cause of her . Advanced recurrent cancer. t Subjective Subjective Patient reports: still having pain, no bowel movement and shortness of breath Interval history since last seen: Margarita's sisters, Yael and Jayleen, came to visit her yesterday. They drove up from [place] to participate in Margarita's Last supper. [facility] made her a wonderful spaghetti dinner. Margarita had multiple bowel medications yesterday, including relistor/methylnaltrexone. However, she has not had a BM. She said that she is not having any nausea or abdominal pain. She is leaking a small amount of feces with her output. Her pain is increasing. She would like to be in charge of her medication boluses. She would like an increase in her basal dose to 2 mg/hr. I spoke to the hospital pharmacist Aleida and she was able to reprogram the pump so Margarita could give herself a bolus every 15 minutes. The pump has a lockout for 20 mg q 4 hrs. This can be changed. She is planning on starting VSED tomorrow, or maybe later today after her sisters leave. I came to see her twice (so far) today in hopes of meeting up with her sisters and answering any questions they might have. Margarita tells me that after they leave today, they will not be returning before her . Exam Const General: cooperative, no acute distress and ill appearing Nutritional Appearance: overweight Orientation: alert, awake and oriented x3 [facility] Head: normocephalic and atraumatic Ears: hearing grossly normal bilaterally General nose exam: external nose normal Face and sinus: normal facial exam, face symmetric and dry mucous membranes Eyes Conjunctivae: conjunctivae normal Sclera: sclerae normal Neck Neck: no lymphadenopathy Resp Effort & Inspection: normal respiratory effort and able to speak in complete sentences Auscultation: clear to auscultation bilaterally Cardio Jugular venous pressure: no JVD Rate: regular rate Rhythm: regular rhythm Heart Sounds: S1 normal and S2 normal GI Inspection: obesity Palpation: soft, not firm, no guarding, no masses and nontender Auscultation: normal bowel sounds External Female Exam: abnormal external appearance, gaping introitus, externally tender, external swelling, lesion and other (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 cancer) Skin General skin exam: pallor Lesions: lesion noted Wounds: wounds noted Hair: normal Neuro General: patient alert, patient awake, patient oriented x3 and not confused Cognition: normal cognition Speech: speech normal Extrem General: calf tenderness (left worse than right, +Homans sign) bilaterally, edema (left leg, from groin to ankle) and pedal edema Psych Appearance: grossly normal Mental Status: mental status grossly normal Speech and Movement: speech clear and slowed movement Mood: congruent mood Affect: normal affect and sad Attitude: cooperative Thought Process: normal Insight: fair Judgment: fair Other: Appears to be of sound mind. Calls herself stubborn. She is convinced that she will be able to use VSED. Objective Last Vital Signs Temp 98.6 F 10/14/20 07:19 Pulse 79 10/14/20 07:19 Resp 15 10/14/20 07:19 BP 104/65 10/14/20 07:19 Pulse Ox 91 L 10/14/20 07:19
--- NOTE | 2020-10-15 14:40 | W.PM.PROGNOT ---
Date of Service Date of service: 10/15/20 Time of Service: 14:40 Assessment and Plan Assessment and plan (1) Voluntary starvation: Start date: 10/15/20 Start time: 14:44 Status: Acute Assessment and plan: Changed status to NPO. Stopped all po medications. Margarita and her sisters are aware that she can change her mind and ask for food/drink if she desires. Life expectancy is between 1-2 weeks. Subjective Subjective Patient reports: no new complaints Interval history since last seen: wants to stop eating and drinking as of today changed her dietary status to NPO talked to her sisters and answered their questions hospice pump will be brought to [facility] in order for Margarita to be able to give herself boluses Exam Const General: cooperative, no acute distress and ill appearing Nutritional Appearance: overweight Orientation: alert, awake and oriented x3 HENMT Head: normocephalic and atraumatic Ears: hearing grossly normal bilaterally General nose exam: external nose normal Face and sinus: normal facial exam, face symmetric and dry mucous membranes Eyes Conjunctivae: conjunctivae normal Sclera: sclerae normal Neck Neck: no lymphadenopathy Resp Effort & Inspection: normal respiratory effort and able to speak in complete sentences Auscultation: clear to auscultation bilaterally Cardio Jugular venous pressure: no JVD Rate: regular rate Rhythm: regular rhythm Heart Sounds: S1 normal and S2 normal GI Inspection: obesity Palpation: soft, not firm, no guarding, no masses and nontender Auscultation: normal bowel sounds External Female Exam: abnormal external appearance, gaping introitus, externally tender, external swelling, lesion and other (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) Skin General skin exam: pallor Lesions: lesion noted Wounds: wounds noted Hair: normal Neuro General: patient alert, patient awake, patient oriented x3 and not confused Cognition: normal cognition Speech: speech normal Extrem General: calf tenderness (left worse than right, +Homans sign) bilaterally, edema (left leg, from groin to ankle) and pedal edema Psych Appearance: grossly normal Mental Status: mental status grossly normal Speech and Movement: speech clear and slowed movement Mood: congruent mood Affect: normal affect and sad Attitude: cooperative Thought Process: normal Insight: fair Judgment: fair Other: Appears to be of sound mind. Calls herself stubborn. She is convinced that she will be able to use VSED. Objective Last Vital Signs Temp 98.6 F 10/14/20 07:19 Pulse 79 10/14/20 07:19 Resp 15 10/14/20 07:19 BP 104/65 10/14/20 07:19 Pulse Ox 91 L 10/14/20 07:19
[2020-10-16] MEDS: Nystatin POWDER 60 GM JAR TP ×3 (09:16→20:31)
[2020-10-16] MEDS: metroNIDAZOLE 500 MG TAB UD ×3 (09:16→20:31)
--- NOTE | 2020-10-16 10:13 | PGE_ITS ---
Date of Service Date of service: 10/16/20 Time of Service: 08:30 Assessment and Plan Assessment and plan (1) Voluntary starvation: Status: Acute Assessment and plan: Hospice and Pall Care specialists prefer to call this voluntary stopping (or cessation) of eating and drinking, or VSED/VCED. Margarita is clear that this is what she wants. She initially wanted to do Act 39, but she thought the 3-4 week timeline was too long. I told her that given her overall strong heart and lungs and obesity status, she could live up to 2 weeks without eating or drinking. We will ensure that she remains comfortable during this process. (2) Generalized weakness: Status: Chronic Assessment and plan: Bed bound. Cannot stand. Expects to get weaker rapidly given her prognosis. (3) Left leg DVT: Status: Suspected Assessment and plan: Untreated with anticoagulants given risk of causing bleeding from her cancerous wound. (4) Uncontrolled pain: Status: Chronic Assessment and plan: Is on a morphine pump with bolus available for patient use. (5) Goals of care, counseling/discussion: Status: Acute Assessment and plan: She reiterated her plan for VSED without regrets. (6) Hospice care patient: Status: Chronic Assessment and plan: Remains on symptom management. May have to increase her basilar rate later today. She is in charge of her boluses. 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 LNAs and RNs are doing a wonderful job keeping her clean and dry. She is very grateful. (9) Colovesical fistula: Status: Acute Subjective Subjective Patient reports: still having pain, no bowel movement and shortness of breath; denies tolerating liquids well and tolerating a regular diet Interval history since last seen: I met with Margarita this am. Her sisters came to say good bye the final time soon after. She is confident in her decision to employ voluntary stopping of eating and drinking (VSED). She would not be able to do this at home as she has no caregiver. Her sisters both live in [place] and one of them is chronically ill. She has no children. She does not want to go to a SNF or community penitentiary, as she would have to pay out of pocket and she does not have excess burt on hand. She is very happy with the care she is receiving from the LNAs and nurses at [facility]. She has not had a BM. She has no GI symptoms. She had asked yesterday for me to stop all oral meds as she did not want to drink the water required to swallow them. She asked for me to change her dietary status to NPO. Exam Const General: cooperative, no acute distress and ill appearing Nutritional Appearance: overweight Orientation: alert, awake and oriented x3 [facility] Head: normocephalic and atraumatic Ears: hearing grossly normal bilaterally General nose exam: external nose normal Face and sinus: normal facial exam, face symmetric and dry mucous membranes Eyes Conjunctivae: conjunctivae normal Sclera: sclerae normal Neck Neck: no lymphadenopathy Resp Effort & Inspection: normal respiratory effort and able to speak in complete sentences Auscultation: clear to auscultation bilaterally Cardio Jugular venous pressure: no JVD Rate: regular rate Rhythm: regular rhythm Heart Sounds: S1 normal and S2 normal GI Inspection: obesity Palpation: soft, not firm, no guarding, no masses and nontender Auscultation: normal bowel sounds External Female Exam: abnormal external appearance, gaping introitus, externally tender, external swelling, lesion and other (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) Skin General skin exam: pallor Lesions: lesion noted Wounds: wounds noted Hair: normal Neuro General: patient alert, patient awake, patient oriented x3 and not confused Cognition: normal cognition Speech: speech normal Extrem General: calf tenderness (left worse than right, +Homans sign) bilaterally, edema (left leg, from groin to ankle) and pedal edema Psych Appearance: grossly normal Mental Status: mental status grossly normal Speech and Movement: speech clear and slowed movement Mood: congruent mood Affect: normal affect and sad Attitude: cooperative Thought Process: normal Insight: fair Judgment: fair Other: Appears to be of sound mind. Calls herself stubborn. She is convinced that she will be able to use VSED. Objective Last Vital Signs Temp 98.6 F 10/14/20 07:19 Pulse 79 10/14/20 07:19 Resp 15 10/14/20 07:19 BP 104/65 10/14/20 07:19 Pulse Ox 91 L 10/14/20 07:19
--- NOTE | 2020-10-16 10:32 | CMPROGNOTE_ITS ---
Care Management Progress Note Per Dr. Shelbi Avila has decided to voluntarily starve herself. Her life expectancy is between 1-2 weeks. Her status was changed to NPO at her wishes and all PO medications discontinued. She will remain at [facility] for end of life care.
--- NOTE | 2020-10-16 15:32 | CHAPLAIN ---
I visited with Margarita shortly after her sisters level. They had been in town for a few days to visit Margarita. Margarita has decided to voluntarily stop drinking and eating to lead to her . She has asked to utilize Act 39, for medically ending her life, but felt the three-week wait period was too long. Mckayla said that Margarita will likely within one to two weeks without eating or drinking. Margarita is very certain of her decision and has been thinking about it for a long time. Here sisters are supportive. Because of the pain and the spread of her cancer, Margarita she doesn't see another way. She is having some pain relief now.
[2020-10-17] MEDS: metroNIDAZOLE 500 MG TAB UD ×3 (08:50→20:55)
[2020-10-17] MEDS: Nystatin POWDER 60 GM JAR TP ×3 (08:51→20:55)
--- NOTE | 2020-10-17 09:52 | CMPROGNOTE_ITS ---
- If Service Date Differs Date of service: 10/17/20 Time of Service: 09:52 Care Management Progress Note S/O: No change in plan. Margarita is a hospice patient who has voluntarily stopped eating and drinking. Her life expectancy is between 1 - 2 weeks. Her status was changed to NPO on 10/15/20 per patient's wishes and all PO medications have been discontinued. A: Margarita is a 80 year old female admitted to [facility] for uncontrolled pain. P: Margarita remains at [facility] for end of life care.
--- NOTE | 2020-10-17 17:58 | W.PM.PROGNOT ---
Date of Service Date of service: 10/17/20 Time of Service: 02:30 Assessment and Plan Assessment and plan (1) Voluntary starvation: Status: Acute Assessment and plan: AKA VSED/VCED per Hospice & Pall Care specialists (voluntary stopping (or cessation) of eating and drinking). Margarita shares with me that she is tolerating VSED, but sipping water today. She seems to enjoy company, and a dry mouth would decrease her current QOL. I expect she may stop liquids once she is weak and unable to enjoy visits or conversation at all. She was told that given her overall strong heart and lungs and obesity status, she could live up to 2 weeks without eating or drinking. Her hospital and hospice team is committed to make sure she remains comfortable during this process. (2) Generalized weakness: Status: Chronic Assessment and plan: Weakness continues .. She is bed bound, cannot stand, and expects to get weaker rapidly given her prognosis. (3) Left leg DVT: Status: Suspected Assessment and plan: Untreated with anticoagulants given risk of causing bleeding from her cancerous wound. (4) Uncontrolled pain: Status: Chronic Assessment and plan: Is on a morphine pump with bolus available for patient use. She appreciates being able to manage her own boluses ... she may need a small increase today. I spoke with nursing who will confirm current rate and adjust @ 1mg/hr/day rate. (5) Goals of care, counseling/discussion: Status: Acute Assessment and plan: She reiterated her plan for VSED without regrets. (6) Hospice care patient: Status: Chronic Assessment and plan: Remains on symptom management. (7) Vulva cancer: Status: Acute Assessment and plan: Advanced per reports .. I did not examine her today. (8) Vesical fistula, not elsewhere classified: Status: Acute Assessment and plan: She is leaking both urine and feces, mixed in with her cancerous wound discharge. LNAs and RNs are doing a wonderful job keeping her clean and dry. She is very grateful. (9) Colovesical fistula: Status: Acute Subjective Subjective Patient reports: no new complaints, still having pain (mild, bolus helps) and tolerating liquids well (tiny sips of water); denies nausea, vomiting and shortness of breath Interval history since last seen: Margarita is pleasant and actually cheerful in her welcome .. She is tolerating NPO, no headache, no major nausea, but we discussed this and I will add PRN anti-emetic. She shifts her weight and appreciates repositioning by staff. Exam Const General: cooperative, comfortable (but admits to needing to shift, and appreciates repositioning. Mild pain an), not anxious, not disheveled, frail appearing and ill appearing Nutritional Appearance: overweight Orientation: alert, awake and oriented x3 HENMT Head: normocephalic and atraumatic Ears: hearing grossly normal bilaterally and no external ear abnormalities General nose exam: normal external nose Face and sinus: normal facial exam, face symmetric and dry mucous membranes Eyes Conjunctivae: conjunctivae normal Sclera: sclerae normal Neck Neck: no lymphadenopathy Resp Effort & Inspection: normal respiratory effort and able to speak in complete sentences Cardio Jugular venous pressure: no JVD GI Inspection: obesity Palpation: soft, not firm, no masses and nontender Skin General skin exam: pallor Neuro General: patient alert, patient awake, patient oriented x3 and not confused Cognition: normal cognition Speech: speech normal Extrem General: edema (left leg, from groin to ankle) and pedal edema Psych Appearance: grossly normal Mental Status: mental status grossly normal Speech and Movement: speech clear and slowed movement Mood: congruent mood Affect: normal affect and sad Attitude: cooperative Thought Process: normal Insight: fair Judgment: fair Other: Margarita appears to be of sound mind, and quietly determined to remain NPO. She is warm and friendly, and seems to enjoy visiting. She seems very appreciative of staff and hospice support, especially being able to manage her own pain control (subcut morphine). Objective Last Vital Signs Temp 98.6 F 10/14/20 07:19 Pulse 79 10/14/20 07:19 Resp 15 10/14/20 07:19 BP 104/65 10/14/20 07:19 Pulse Ox 91 L 10/14/20 07:19
[2020-10-18] MEDS: metroNIDAZOLE 500 MG TAB UD ×2 (09:15→14:27)
[2020-10-18] MEDS: Nystatin POWDER 60 GM JAR TP ×2 (09:15→14:27)
--- NOTE | 2020-10-18 10:58 | CMPROGNOTE_ITS ---
- If Service Date Differs Date of service: 10/18/20 Time of Service: 10:58 Care Management Progress Note S/O: No change in plan. Margarita is a hospice patient who has voluntarily stopped eating and drinking. Her life expectancy is between 1 - 2 weeks. Her status was changed to NPO on 10/15/20 per patient's wishes and all PO medications have been discontinued. Per provider note, Margarita is expected to become rapidly weaker. She remains on a Morphine CAD pump for pain. CM will continue to follow. A: Margarita is a 80 year old female admitted to [facility] for uncontrolled pain. P: Margarita remains at [facility] for end of life care.
[2020-10-18] MEDS: LORazepam 2 MG/ML VIAL IV/SC ×2 (12:41→18:47)
--- NOTE | 2020-10-18 13:47 | PGE_ITS ---
Date of Service Date of service: 10/18/20 Time of Service: 12:30 Assessment and Plan Assessment and plan (1) Voluntary starvation: Status: Acute Assessment and plan: AKA VSED/VCED per Hospice & Pall Care specialists (voluntary stopping (or cessation) of eating and drinking). Margarita is doing well, sipping water, but les. Again, she seems to enjoy company, and a dry mouth would decrease her current QOL. I expect she may stop liquids once she is weak and unable to enjoy visits or conversation at all. She was told that given her overall strong heart and lungs and obesity status, she could live up to 2 weeks without eating or drinking. Her hospital and hospice team is committed to make sure she remains comfortable during this process. (2) Generalized weakness: Status: Chronic Assessment and plan: Weakness continues .. She is bed bound, but stood with assistance today. She enjoyed it, but was dizzy. We expect her to get weaker rapidly given her prognosis. (3) Left leg DVT: Status: Suspected Assessment and plan: Untreated with anticoagulants given risk of causing bleeding from her cancerous wound. (4) Uncontrolled pain: Status: Chronic Assessment and plan: Is on a morphine pump with bolus available for patient use. She appreciates being able to manage her own boluses ... she may need a small increase today. Nursing re-calibrated and increased her morphine today. I recommend she increase her bolus dose, as I feel movement will bring on increased discomfort as pelvis becomes stiff, hard from advancing cancer. (5) Goals of care, counseling/discussion: Status: Acute Assessment and plan: She reiterated her plan for VSED without regrets. (6) Hospice care patient: Status: Chronic Assessment and plan: Remains on symptom management. Pain, discomfort, anxiety noted and discussed today. Meds adjusted. (7) Vulva cancer: Status: Acute Assessment and plan: Advanced per reports .. gross exam shows hardening of her left inguinal region. (8) Vesical fistula, not elsewhere classified: Status: Acute Assessment and plan: She is leaking both urine and feces, mixed in with her cancerous wound discharge. LNAs and RNs are doing a wonderful job keeping her clean and dry. She is very grateful. (9) Colovesical fistula: Status: Acute (10) Back pain: Status: Acute Assessment and plan: Mild, probably due to being bedbound .. She stood up today, and enjoyed it. We talked about adding to her stretching routine. (11) Anxiety: Status: Acute Assessment and plan: While not overt, she admitted to feeling some anxiety when we spoke of muscle pain and tension. Subjective Subjective Patient reports: still having pain, tolerating liquids well (tiny sips of water, less, but helps dry mouth) and no bowel movement; denies nausea and vomiting Interval history since last seen: Margarita again welcomes me warmly, remembering me and even introducing me to the nurses working on her CAD pump. Yesterday's increase did not go through, but the procedure was reviewed with supervising nurse and 3mg/hr now flowing. I appreciate hospice nurse on-call calling in to help. We kept Margarita's bolus at 1mg as it has done well for her and she prefers q15 PRN. She does c/o upper back/shoulder pain, as well as possible gas pain. We tried a few extra stretching exercises.. she can do most on her own [as she is already doing] and can ask for simple help from nursing. Nursing and I also both suggested a trial of the Ativan as it may help relax her back and calm the twinge of anxiety we all feel has come on. She felt it kick in within 15-20 minutes ... I will check in at the end of the day to see if she has asked for another dose. I would urge her to include it in her daily regimen. She appears weaker, lying flat today and appearing a bit more pain. Nursing reports (-) BM, Dark Urine and NPO (except water/ice chips) since Monday.. I again supported her sipping of water as this helps QOL by enabling her to be conversational. I counseled that as she becomes weaker and we need to increase morphine, she will not be as conscious and then NPO will be more complete. Right now, to enjoy company, and conversation, with a dry mouth would be unfair. Exam Narrative Exam Narrative: Margarita is laying flat today, as nursing was re-calibrating and checking her CAD pump [Morphine, subcut]. 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 she also had a strong foot pump. Her abdomen is soft, nontender, but mild-mod bloated. Her left inguinal region is quite firm, but non-tender. Her calves are soft, left remains larger than right .. no tenderness, or pain. She converses well, no SOB. She remains witty and engaged. Objective Last Vital Signs Temp 98.6 F 10/14/20 07:19 Pulse 79 10/14/20 07:19 Resp 15 10/14/20 07:19 BP 104/65 10/14/20 07:19 Pulse Ox 91 L 10/14/20 07:19
[2020-10-19] MEDS: metroNIDAZOLE 500 MG TAB UD ×3 (08:48→21:02)
[2020-10-19] MEDS: Nystatin POWDER 60 GM JAR TP ×3 (08:48→21:02)
--- NOTE | 2020-10-19 15:44 | W.PM.PROGNOT ---
Date of Service Date of service: 10/19/20 Time of Service: 15:45 Assessment and Plan Assessment and plan (1) Anxiety: Status: Acute Assessment and plan: Anxiety?we will going to try some scheduled lorazepam and see if it makes her more comfortable. She is also hopeful that it will help with some muscle spasms (2) Back pain: Status: Acute Assessment and plan: Unfortunately she lying in bed all day because that the weakness that she has she is unable to get up. Hopefully an increase in morphine and lorazepam will help (3) Voluntary starvation: Status: Acute Assessment and plan: She is choosing to drink ice water. It is understandable that thirst is driving this. Still she also understands that is going to take her longer to reach her goal (4) Left leg DVT: Status: Suspected Assessment and plan: Presumed DVT. Will not treat due to end-of-life (5) Colovesical fistula: Status: Acute Assessment and plan: Nurses are doing a great job in controlling the odor and keeping her comfortable (6) Vulva cancer: Status: Acute Assessment and plan: I did increase her hourly rate and will adjust her bolus Subjective Subjective Interval history since last seen: Margarita is lying in her bed. She is at peace with her sisters who came, set the goodbyes, and have left. She has melendez sitting on her bedside from them. She loves to look at them. She said that the nurses have been absolutely wonderful. She has been made to feel as comfortable as she possibly could. She has not been able to get out of bed today due to weakness and pain. She is choosing to continue to drink limited amounts of ice water. She talks about enjoying the sunshine through the rain Exam Narrative Exam Narrative: Margarita is lying in bed. She appears very peaceful. She has recently had an increase in her pain medication and feels that it was needed. She is feeling a little anxious and wonders about other medications. Her heart regular, lung sounds diminished, abdomen not tense. Her left leg remains about twice the size of the right leg from a presumed DVT She is smiling but it is obvious that she has some discomfort Objective Last Vital Signs Temp 98.6 F 10/14/20 07:19 Pulse 79 10/14/20 07:19 Resp 15 10/14/20 07:19 BP 104/65 10/14/20 07:19 Pulse Ox 91 L 10/14/20 07:19
[2020-10-19] MEDS: LORazepam 2 MG/ML VIAL 1 MG IVP (16:09)
--- NOTE | 2020-10-19 17:39 | CMPROGNOTE_ITS ---
- If Service Date Differs Date of service: 10/19/20 Time of Service: 17:39 Care Management Progress Note S/O: No change in plan. Per provider note, Margarita is drinking small amounts of ice water due to thirst. She is presumed to have a DVT in her left leg, making the leg twice the size of the right one. She continues on IV Morphine for pain. A: Margarita is a 80 year old female admitted to [facility] for uncontrolled pain. P: Margarita remains at [facility] for end of life care.
--- NOTE | 2020-10-20 08:20 | W.PM.PROGNOT ---
Date of Service Date of service: 10/20/20 Time of Service: 06:20 Assessment and Plan Assessment and plan (1) Anxiety: Status: Acute Assessment and plan: Mau courtney is working very well. She seems comfortable. She is having less muscle spasms and back pain. (2) Voluntary starvation: Status: Acute Assessment and plan: She is no longer drinking fluids. She is awake, but unable to hold her phone or obtain fluids. She had been drinking quite a bit of water and I expect that her spiral downward will be quicker now that she is no longer drinking fluids. (3) Vulva cancer: Status: Acute Assessment and plan: There is no odor at this time. We will make the [place] as needed. I have spoken to nursing about this. She seems at peace with her decision and how her care is going. She is very happy with the nursing care that she has received I have signed out to Mellisa lópez NP Subjective Subjective Interval history since last seen: Patient is lying in bed. She opens her eyes when I talk with her but she does not say much. Her sister calls while I am in the room and I hold the phone to her ear. She is very weak. She and her sister say 1 word sentences to each other. Exam Narrative Exam Narrative: Lying in bed. He had she opens her eyes. She does not talk but does whisper words. She says that she is much more comfortable. Objective Last Vital Signs Temp 98.6 F 10/14/20 07:19 Pulse 79 10/14/20 07:19 Resp 15 10/14/20 07:19 BP 104/65 10/14/20 07:19 Pulse Ox 91 L 10/14/20 07:19
[2020-10-20] MEDS: Nystatin POWDER 60 GM JAR TP ×3 (10:07→20:55)
--- NOTE | 2020-10-20 10:49 | CMPROGNOTE_ITS ---
- If Service Date Differs Date of service: 10/20/20 Time of Service: 10:50 Care Management Progress Note S/O: No change in plan. Per report, Margarita has stopped drinking fluids, and MD feels that this will hasten the end of her life. She is on an ativan drip, which, per report, is working well. She appears comfortable. A: Margarita is a 80 year old female admitted to [facility] for uncontrolled pain. P: Margarita remains at [facility] for end of life care.
--- NOTE | 2020-10-21 02:45 | NUR.NOTE ---
Nursing Note: During handoff report on 10/20 at around 0700, this RN spoke with the on-coming RN and Dr. De La Torre who instructed the nurses to push the patient's [employer] button when she is no longer able to press it herself. The [employer] pump the patient is using does not belong to the hospital and was set up by Hospice services, therefore this RN has very little training on how it works. This pump does not appear to have a clinician bolus function. This RN discussed with the CC the possibility of changing the patient's pump to one of the hospital's CADD pumps to allow the RN's to provide clinician boluses and to be able to increase the patient's rate as ordered from 5mg/hr to 6mg/hr d/t the pt's pain. The current pump will not exceed 5mg/hr despite multiple RNs trying to figure out the pump. The CC advised this RN that since Hospice set up the pt's current pump, we cannot change it.
--- NOTE | 2020-10-21 09:47 | W.PM.PROGNOT ---
Documented by User: Mellisa Jackson NP 10/21/20 10:06 Date of Service Date of service: 10/21/20 Time of Service: 09:10 Assessment and Plan Assessment and plan (1) Anxiety: Status: Acute Assessment and plan: She remains on the ativan drip at 0.25mg/hr, she appears to be very comfortable. Continue drip, titrate as needed. (2) Voluntary starvation: Status: Acute Assessment and plan: She is unable to eat or drink at this point. She chose [facility] prior to today. She appears very comfortable. (3) Vulva cancer: Status: Acute Assessment and plan: There is no odor, she has Flagyl ordered as needed. (4) Hospice care patient: Status: Chronic Assessment and plan: Margarita remains on hospice symptom management. She is unresponsive. She appears comfortable. Nursing has asked for scopolamine patches for increased secretions, which has been ordered. Continue comfort care. Her life expectancy is measured in hours to days at this point. Subjective Subjective Interval history since last seen: Margarita remains on Hospice symptom management. She is unresponsive this morning. She appears to be resting comfortably in bed. She has lorazepam 0.25 mg/hr IV and MS 6 mg/hr via CADD pump. Nursing is requesting scopolamine patch for increased secretions, no other concerns. Exam Narrative Exam Narrative: General: Margarita is resting in bed with her eyes closed, she appears to be comfortable, she did not respond to verbal or tactile stimuli. HEENT: eyes remained closed, mucous membranes dry. Cardiovascular: heart sounds regular. Respiratory: snoring respirations, no apnea noted. GI: +Bs, nondistended. : not visualized. Extremities: edema to BLEs, L>R. Objective Last Vital Signs Temp 37.0 C 10/14/20 07:19 Pulse 79 10/14/20 07:19 Resp 15 10/14/20 07:19 BP 104/65 10/14/20 07:19 Pulse Ox 91 L 10/14/20 07:19 Documented by User: Violette De La Torre MD, TERRELL 10/22/20 13:06
[2020-10-21] MEDS: Scopolamine 1 MG/3 DAYS PATCH TD (10:04)
[2020-10-21] MEDS: Nystatin POWDER 60 GM JAR TP ×2 (11:56→13:42)
--- NOTE | 2020-10-21 15:14 | CHAPLAIN ---
Margarita has been sleeping today, and much of yesterday. A friend, Dahlia, who is a retired nurse, has visited both days. Dahlia said yesterday when she spoke directly into Margarita's ear, Margarita whispered back to her. Today Margarita seems less responsive. Dahlia said she will continue to visit daily. Margarita's two sisters were here last week and returned home to [place]. Margarita's plan was to stop eating and drinking after their visit, which she has done. She talked about her plan ahead of time and seemed very comfortable with it. She said she has always had a relationship with Luca, and did not fear dying, but was very distressed by the pain and the course of her cancer.
[2020-10-22] MEDS: Nystatin POWDER 60 GM JAR TP ×4 (00:36→21:38)
--- NOTE | 2020-10-22 07:57 | PGE_ITS ---
Date of Service Date of service: 10/22/20 Time of Service: 07:57 Assessment and Plan Assessment and plan (1) Vulva cancer: Status: Acute (2) Left leg swelling: Status: Acute (3) Hospice care patient: Status: Chronic Assessment and plan: clearly Margarita is not comfortable. They have been giving her boluses of Ativan and morphine. We will at this time increase her Ativan drip to 0.5 mg/h and continue with the morphine. If she is not comfortable by noon per Margarita's wishes we will start propofol. I did speak to sisters and shared the phone with CHENTE Garza. They have requested that the propofol drip be started sooner rather than later. They are in [place] but we will put in the propofol drip paperwork witnessed by both Kayla ELDRIDGE and myself. I spoke with nursing. They are doing a fantastic job. The room is surrounded by melendez Hopefully she will pass soon, I expect today. Family called [facility] and asked us not to wait and to please start palliative sedation alin as they do not want their sister to suffer. Propophol drip started Subjective Subjective Interval history since last seen: Margarita at this point is nonverbal. She has had a fitful night with agitation and pain. Nursing sat with her for some time. They are concerned about her congestion and have been giving her scopolamine and atropine Exam Narrative Exam Narrative: Clear very uncomfortable. Her heart rate is up into the upper 90s. Her breathing is shallow. She is not having any apnea at this time. Her abdomen is soft. Her left leg is quite a bit larger than her right. Objective Last Vital Signs Temp 98.6 F 10/14/20 07:19 Pulse 79 10/14/20 07:19 Resp 15 10/14/20 07:19 BP 104/65 10/14/20 07:19 Pulse Ox 91 L 10/14/20 07:19
[2020-10-22] MEDS: LORazepam 2 MG/ML VIAL IV/SC (08:11)
[2020-10-22] MEDS: PROPOFOL 1,000 MG/100 ML BTL 1 MG IVPB (10:07)
[2020-10-22] MEDS: Normal Saline Flush 10 ML SYR (10:10)
--- NOTE | 2020-10-22 14:43 | CHAPLAIN ---
I sat with Margarita earlier today and will return this afternoon. She is unresponsive, but looks comfortable. According to Dr. De La Torre's notes, Margarita was uncomfortable last night and after speaking with Margarita's sisters in [place], the pain med was changed.
--- NOTE | 2020-10-22 17:18 | PDOC.CMPRO ---
- If Service Date Differs Date of service: 10/22/20 Time of Service: 17:18 Care Management Progress Note S/O: No change in plan. Per report, Margarita has stopped drinking fluids, and MD feels that this will hasten the end of her life. She is on an ativan drip, which, per report, is working well. She appears comfortable with beautiful melendez surrounding her room. A: Margarita is a 80 year old female admitted to [facility] for uncontrolled pain. P: Margarita remains at [facility] for end of life care.
--- NOTE | 2020-10-22 21:33 | PGE_ITS ---
Date of Service Date of service: 10/22/20 Time of Service: 19:00 Assessment and Plan Assessment and plan (1) Vulva cancer: Status: Acute (2) Left leg swelling: Status: Acute (3) Hospice care patient: Status: Chronic Assessment and plan: Margarita looks comfortable. She is breathing evenly, no signs of discomfort. Her ATIVAN was recently increased to 1mg/hr. Nursing feels she is comfortable, with which I agree. She is covered with a colorful, hand- made crocheted blanket. Subjective Subjective Patient reports: no new complaints Interval history since last seen: I checked in on Margarita this evening.. She appears to be comfortable, breaths are shallow, no raspiness (13-14 bpm). She appears calm and peaceful. Exam Narrative Exam Narrative: Margarita appears comfortable .. on (3) drips (Morphine, Ativan, Propofol).. [facility] is caring for her very well, she looks peaceful. No apnea observed. Objective Last Vital Signs Temp 98.6 F 10/14/20 07:19 Pulse 79 10/14/20 07:19 Resp 15 10/14/20 07:19 BP 104/65 10/14/20 07:19 Pulse Ox 91 L 10/14/20 07:19
--- NOTE | 2020-10-22 22:00 | W.PM.DDS ---
Date of service: 10/22/20 Time of Service: 22:00 Discharge Sum: Prov Provider Consults: 10/11/20 08:27 Video Rental Clerk Consult [CONS] Routine Consultation Status:: Contact made by MD Clarification:: Manage/follow per spec. Reason for consult:: nearing end of her life Discharge Sum: Diag Contributing Factors (1) Vulva cancer: (2) Left leg swelling: (3) Hospice care patient: (4) Anxiety: (5) Back pain: (6) Generalized weakness: (7) Uncontrolled pain: (8) Wound discharge: Discharge Sum: Summary Margarita was admitted, as a hospice patient, October 11 for symptom management. Her pain had become unbearable, and her sister was unable to provide the care needed to stay at home. Her sister cares for their sister with COPD in [place]. Margarita had considered using [facility], but realized she could not manage the waiting time. She requested an urgent hospice admission due to weakness and pain. Dr. Mario admitted her to the hospital, discussing the case with all of us as Margarita was deciding to voluntarily stop eating and drinking. Margarita had met with hospice volunteer coordinator Tri Gillespie, who followed her during this hospital stay. A sub-cutaneous Morphine was started by hospice; the hospital staff was able to increase dosing daily. Ativan was tried Wednesday 10/18, with good results; a drip was started the following day. By morning, her discomfort, especially overnight, was pronounced, and a propofol drip was started. This had been discussed within the team, requested by Margarita and then again urged to be started by her sisters to keep Margarita comfortable. She seemed peaceful that last day and early Monday morning. I was called by the manager of finance. IK Additional Data Confirmation of as documented by pronouncing clinician: no pulse, no respirations and other Family: contacted (I spoke with sisterYael.) Additional persons at bedside: other (Nursing) Attending/PCP notified?: No Attending Physician: Mario Mario MD Was code activated?: No (Hospice Patient) Autopsy requested?: No pension examiner notified?: No Organ bank notified?: No Advance directives: Yes Hospice patient?: Yes
== END 2020-10-22 21:43 | disposition expired | DRG 948 ==
PROVIDERS: Admitting Provider Family Medicine; PCP Internal Medicine; Visit Provider Family Medicine
DX: G89.3 Neoplasm related pain (acute) (chronic); I82.402 Acute embolism and thrombosis of unspecified deep veins of left lower extremity; N32.1 Vesicointestinal fistula; R53.1 Weakness; Z51.5 Encounter for palliative care; R15.9 Full incontinence of feces; R32 Unspecified urinary incontinence; R63.4 Abnormal weight loss; C51.9 Malignant neoplasm of vulva, unspecified; Z66 Do not resuscitate; Z20.822 Contact with and (suspected) exposure to COVID-19; K59.00 Constipation, unspecified; F41.9 Anxiety disorder, unspecified
CPT/HCPCS: 87635; 99221; J2060; J3490